=== PATIENT | male | born 1995 | race African-American/Black ===

== ENCOUNTER 2019-07-27 14:10 | Inpatient (IN) ==
[2019-07-27] MEDS ORDERED: XYLOCAINE-MPF 1% INJ ONE (15:09)
--- NOTE | 2019-07-27 15:14 | PROVIDER DOCUMENTATION ---
HPI-Rash/Wound/ReCheck - General Chief Complaint: Abscess Stated Complaint: MALE Time Seen by Provider: 07/27/19 14:19 Source: patient Allergies/Adverse Reactions: Allergies Allergy/AdvReac Type Severity Reaction Status Date / Time No Known Allergies Allergy Verified 07/27/19 15:07 Home Medications: Home Medication List Medication Instructions Recorded Confirmed Last Taken Type NK [No Home Medications] 07/27/19 07/27/19 Unknown History - History of Present Illness-Dermatology Nature of Presenting Problem: 23 YOM PRESENTS WITH C/O PERINEAL ABSCESS FOR WHICH HE WAS TREATED WITH FLAGYL AND LEVAQUIN 10 DAYS AGO. HE REPORTS THEY WERE UNABLE TO DO AN I&D AT THAT TIME. SINCE THAT TIME THE LESION HAS BEEN DRAINING AND THE PATIENT REPORTS HE HAD NO WAY TO "CLEAN IT OUT" SO HE PRESENTS TO THE ER. HE DENIES FEVER, CHILLS Location: reports: genitalia Quality: reports: painful Severity: reports: moderate Onset/Duration: reports: other (12 DAYS) Timing: reports: still present Context/Associated Symptoms: reports: abscess Identifiable cause?: No Modifying Factors: improves with: other (WAS TX WITH FLAGYL/LEVAQUIN X 10 DAYS) Similar Symptoms Previously?: No Recently seen or treated by another doctor?: Yes (ER IN [place] ) - Recheck Treated days ago.: 10 Previous Treatment: I & D of abscess Antibiotics given: prescription Review of Systems - Adult - REVIEW OF SYSTEMS - ADULT Constitutional: reports: no symptoms reported. denies: see HPI, chills, fever, fatique, night sweats, weight gain, weight loss, other Eyes: reports: no symptoms reported. denies: see HPI, discharge, dry eyes, decreased vision, blurred vision, double vision, eye pain, redness, other Ears, Nose, Mouth & Throat: reports: no symptoms reported. denies: see HPI, ear discharge, ear pain, hearing loss, tinnitus, epistaxis, sinus problem, nose pain, loose teeth, mouth/dental pain, mouth swelling, hoarseness, throat pain, throat swelling, other Cardiovascular: reports: no symptoms reported. denies: see HPI, chest pain, edema, heart murmur, irregular heart rate, orthopnea, palpitations, poor circulation, PND, syncope, other Respiratory: reports: no symptoms reported. denies: see HPI, chronic cough, cough, dyspnea on exertion, excessive sputum production, hemoptysis, pleurisy, shortness of breath, wheezing, other Gastrointestinal: reports: no symptoms reported. denies: see HPI, abdominal pain, hematemesis, constipation, diarrhea, difficulty swallowing, frequent heart burn, nausea, poor appetite, rectal bleeding, vomiting, other Genitourinary: reports: see HPI. denies: no symptoms reported, dysuria, discharge, frequency, flank pain, frequent UTI's, hematuria, hesitency, incontinence, urinary retention, urgency, other Musculoskeletal: reports: no symptoms reported. denies: see HPI, bone pain, back pain, frequent leg cramps, joint pain, joint swelling, muscle aches, muscle weakness, neck pain, other Integumentary: reports: see HPI, skin sores/ulcer. denies: no symptoms reported, hives, hair loss, itching, mole changes, nail changes, rash, skin thickening, other Neurological: reports: no symptoms reported. denies: see HPI, ataxia, dizziness/vertigo, headache/migraines, loss of balance, numbness, paresthesia, seizure, slurred speech, syncope, tremors, other Psychiatric: reports: no symptoms reported. denies: see HPI, anxiety, anti- depressant use, alcohol/drug dependence, depression, emotional problems, insomnia, panic attacks, suicidal thoughts, other Endocrine: reports: no symptoms reported. denies: see HPI, change in skin pigment, excessive sweating, goiter, cold intolerance, heat intolerance, increased hunger, increased thirst, polyuria, other Hematologic/Lymphatic: reports: no symptoms reported. denies: see HPI, blood clots, easy bruising, low blood count, lymphedema, prolonged bleeding, swollen lymph nodes, transfusions, other Allergic/Immunologic: reports: no symptoms reported. denies: see HPI, allergic reactions, allergic rhinitis, asthma, eczema, food allergy, frequent infections, hay fever, hives, positive PPD, urticaria, other Past History - Adult - PAST MEDICAL HISTORY-ADULT Review of Records: reports: Nursing Assessment Review, Social history reviewed & non-contributory. Physical Exam-General - PHYSICAL EXAM-ADULT Initial Vital Signs Reviewed: Yes - CONSTITUTIONAL General Appearance: appears well, alert, no apparent distress - EYES Eyes: PERRL/EOMI, pink conjunctivae - HEAD, EARS, NOSE, MOUTH & THROAT HENMT: normocephalic/atraumatic, moist mucous membranes, normal ENT inspection - NECK Neck: non-tender, full range of motion, supple - RESPIRATORY Respiratory: chest non-tender, lungs clear, normal breath sounds, no pleuratic chest pain, no respiratory distress, no accessory muscle use - CARDIOVASCULAR Cardiovascular: normal peripheral pulses, regular rate, rhythm, no edema, no gallop, no JVD, no murmur - GASTROINTESTINAL (ABDOMEN) Abdominal Exam: normal bowel sounds, non tender, soft - LYMPHATIC Lymphatic: no adenopathy - MUSCULOSKELETAL Back Exam: normal inspection, no CVA tenderness, no vertebral tenderness Extremity: normal range of motion, non-tender, normal gait, normal inspection - SKIN Integumentary: normal color, normal turgor, warm/dry, other (ABCESS TO PERINEAL AREA) - NEUROLOGIC Neurologic: grossly normal - PSYCHIATRIC Psych/Mental Status: normal mood/affect, oriented x 3 Progress - PLAN OF CARE/RESULTS Progress/Plan/Lab Results: Vital Signs - 8 hr 07/27/19 14:17 Temperature 98.0 F Pulse Rate 108 H Respiratory Rate 18 Blood Pressure 139/100 O2 Sat by Pulse Oximetry 98 Laboratory Results - last 24 hr 07/27/19 07/27/19 07/27/19 15:42 15:42 15:49 WBC 11.76 H RBC 5.77 Hgb 15.0 Hct 45.8 MCV 79.4 L MCH 26.0 L MCHC 32.8 L RDW Std Deviation 12.1 Plt Count 577 H MPV 9.7 Immature Gran % (Auto) 0.9 H Neut % (Auto) 66.2 Lymph % (Auto) 23.3 Baxter % (Auto) 8.2 Eos % (Auto) 1.1 Baso % (Auto) 0.3 Immature Gran # (Auto) 0.10 H Neut # (Auto) 7.79 H Lymph # (Auto) 2.74 Baxter # (Auto) 0.97 H Eos # (Auto) 0.13 Baso # (Auto) 0.03 PT 14.6 INR 1.08 POC Glucose 289 H Orders Category Date Time Status Cardiac Monitoring DIRECTED Care 07/27/19 15:31 Active Finger Stick Blood Sugar (ED) DIRECTED Care 07/27/19 15:29 Active I and D Set up DIRECTED Care 07/27/19 15:09 Active Saline Loc NOW Care 07/27/19 15:28 Active Wound Care DIRECTED Care 07/27/19 15:46 Active NPO Diet 07/27/19 15:46 Active ABG [RESP] Stat Lab 07/27/19 15:48 Uncollected ABSCESS CULTURE INC GRAM STAIN [RM] Stat Lab 07/27/19 15:30 Uncollected ACETONE SERUM [CHEM] Stat Lab 07/27/19 15:42 Received BLOOD CULTURE [BLDCUL] Stat Lab 07/27/19 15:31 Ordered BLOOD CULTURE [BLDCUL] Stat Lab 07/27/19 15:44 Ordered CBC WITH ELECTRONIC DIFF [HEME] Stat Lab 07/27/19 15:42 Completed CK PROFILE [SP CHEM] Stat Lab 07/27/19 15:42 Received COMPREHENSIVE METABOLIC PANEL [CHEM] Stat Lab 07/27/19 15:42 Received LACTATE, PLASMA [CHEM] Q3H Lab 07/27/19 18:45 Uncollected LACTATE, PLASMA [CHEM] Q3H Lab 07/27/19 21:45 Uncollected LACTATE, PLASMA [CHEM] Stat Lab 07/27/19 15:42 Received MAGNESIUM [CHEM] Stat Lab 07/27/19 15:42 Received PROTIME WITH INR [COAG] Stat Lab 07/27/19 15:42 Received PTT [COAG] Stat Lab 07/27/19 15:42 Received TROPONIN T Stat Lab 07/27/19 15:42 Received TYPE & SCREEN [BBK] Stat Lab 07/27/19 15:[address] W/POSS RFLX CULT [URINALYSIS] Stat Lab 07/27/19 15:31 Uncollected 0.9% Sodium Chloride Inj [Ns] 1,000 ml Med 07/27/19 15:28 Discontinued IV 999 mls/hr 0.9% Sodium Chloride Inj [Ns] 1,000 ml Med 07/27/19 15:34 Active IV 999 mls/hr Lidocaine 1% Pf [Xylocaine-Mpf 1%] Med 07/27/19 15:09 Discontinued 10 ml INJ NOW ONE Piperacillin/Tazobactam [Zosyn] 3.375 gm Med 07/27/19 15:29 Discontinued 0.9% Sodium Chloride Inj [Ns] 50 ml IV NOW Vancomycin 1 gm/Ns Med 07/27/19 15:29 Active 1 gm in 250 ml IV NOW 1536: NO I&D PERFORMED S&S CONSISTENT WITH FOURNIERS GANGRENE, DR MAGALLON HAS ALSO EVALUATED THE PATIENT. CALLED UROLOGY NOW Result Diagrams: 07/27/19 15:42 - CONSULTS/PCP/HOSPITALIST Notification #1 *Consult/PCP/Hospitalist*: Katelyn paged at [phone], repaged at [phone] Time Discussed: 16:05 Reason/Comments: ER TO ER, UROLOGY TO SEE IN ER Consult Disposition: Admit #2 Consult: DR SAWYER IN ER AT DG Time Discussed: 16:05 Consult Disposition: other (SENDING ER TO ER) Departure - Departure Date of Disposition Decision: 07/27/19 Time of Disposition Decision: 16:05 DIAGNOSIS: Danny gangrene, Diabetes mellitus with hyperglycemia Disposition: HOME 01 Certified Medical Emergency: Emergent Condition: Fair Referrals and Follow-Ups: None,PCP [Primary Care Provider] - - Critical Care Note This patient required my direct & personal management of CC.: Yes Total Time (mins): 30 Critical Care Statement: This patient required my direct personal management to treat or rule out processes, the absence of which, could potentiallly result in sudden, clinically significant life or limb threatening deterioration. Attestation - Physician/ KELSEY Attestation Advanced Practice Provider:: Moon Merrill The physician spent face to face time with patient:: Yes Advanced Practice Provider documentation review:: Supervising physician onsite and consulted in the evaluation and care of this patient. The physician did have a face to face encounter with the patient.
[2019-07-27] MEDS ORDERED: NS 1,000 ML IV ONE ×2 (15:28→15:34)
[2019-07-27] MEDS ORDERED: VANCOMYCIN 1 GM/NS 1 GM/250 ML IVPB IV ONE (15:29)
[2019-07-27] MEDS ORDERED: ZOSYN 3.375 GM in NS 50 ML IV ONE (15:29)
[2019-07-27 16:00] LABS: BASO# 0.03 X1000 (0.0-0.2); BASO% 0.3 % (0.0-0.8); EOS# 0.13 X1000 (0.0-0.7); EOS% 1.1 % (0.0-10.0); HEMATOCRIT 45.8 % (42.0-52.0); IMM GRAN% 0.9 % (0.0-0.5); LYMPH# 2.74 X1000 (1.2-3.4); LYMPH% 23.3 % (20.5-51.1); MCHC 32.8 g/dL (33-37); MCV 79.4 FL (81-99); MONO# 0.97 X1000 (0.11-0.59); MONO% 8.2 % (1.7-9.3); MPV 9.7 FL (7.4-10.4); NEUT# 7.79 X1000 (1.4-6.5); NEUT% 66.2 % (42.2-75.2); PLT 577 X1000 (130-400); RBC 5.77 XMIL (4.7-6.1); RDW 12.1 % (11.5-14.5); WBC 11.76 X1000 (4.8-10.8)
[2019-07-27 16:08] LABS: INR 1.08; PROTIME 14.6 Seconds (11.0-16.0)
[2019-07-27 16:09] LABS: PTT 35.8 Seconds (22.3-41.8)
[2019-07-27 16:19] LABS: AGAP 16; ALBUMIN 4.3 g/dL (3.5-5.0); ALKALINE PHOSPHATASE 122 U/L (32-122); BUN 7 mg/dL (8-22); CALCIUM 9.9 mg/dL (8.8-10.2); CHLORIDE 98 mmol/L (98-107); COSMO 283; CREATININE 0.6 mg/dL (0.7-1.2); ESTIMATED GFR > 60; GLUCOSE 274 mg/dL (70-104); POTASSIUM 3.9 mmol/L (3.5-5.1); SODIUM 138 mmol/L (136-145); TCO2 25 mmol/L (25-35); TOTAL PROTEIN 8.7 g/dL (6.3-8.3)
[2019-07-27 16:20] LABS: MAGNESIUM 1.9 mg/dL (1.5-2.7)
[2019-07-27 16:31] LABS: GOT 63 U/L (10-34); GPT 101 U/L (10-44)
[2019-07-27 18:06] LABS: ALLEN TEST YES; BE -1.2 mmoll (-3.0-3.0); BLOOD TYPE ARTERIAL; HCO3-(ACT) 23.8 mmoll (20.0-26.0); METHB 0.8 % (0.0-1.5); PCO2(98.6) 39 mmHg (35-45); PO2(98.6) 64 mmHg (60-100); SAMPLE BLOOD; SAO2 94.5 % (95.0-100.0); THB 13.9 g/dL (11.5-17.4); pH(98.6) 7.39 (7.35-7.45)
[2019-07-27 18:07] LABS: MODALITY ROOM AIR
[2019-07-27] MEDS ORDERED: XYLOCAINE-MPF 2% ONE (18:32)
[2019-07-27] MEDS ORDERED: VERSED ONE (18:32)
[2019-07-27] MEDS ORDERED: DIPRIVAN 1% ONE (18:32)
[2019-07-27 18:42] LABS: URINE SOURCE CATH
[2019-07-27 18:47] LABS: UR EPITHELIAL CELLS <10 /HPF (<10); URINE BACTERIA NEGATIVE /HPF; URINE RBC 20-40 /HPF (<10); URINE WBC <10 /HPF (<10)
[2019-07-27 18:49] LABS: BILIRUBIN URINE NEGATIVE (NEGATIVE); BLOOD URINE MODERATE (NEGATIVE); COLOR YELLOW; GLUCOSE URINE >1000 mg/dL (NEGATIVE); KETONE URINE 60 mg/dL (NEGATIVE); LEUKOCYTES URINE NEGATIVE (NEGATIVE); NITRITE URINE NEGATIVE (NEGATIVE); PH URINE 6.5; PROTEIN URINE 30 mg/dL (NEGATIVE); SP GRAVITY URINE 1.031; TURBIDITY URINE CLEAR (CLEAR); UROBILINOGEN URINE NORMAL (NORMAL)
[2019-07-27] MEDS ORDERED: ZOFRAN ONE (19:05)
[2019-07-27] MEDS ORDERED: TORADOL ONE (19:05)
[2019-07-27] MEDS ORDERED: ROBINUL ONE (19:05)
[2019-07-27] MEDS ORDERED: DILAUDID ONE (19:17)
[2019-07-27 19:41] LABS: URINE SOURCE CATH
[2019-07-27 19:46] LABS: UR EPITHELIAL CELLS <10 /HPF (<10); URINE BACTERIA NEGATIVE /HPF; URINE RBC <10 /HPF (<10); URINE WBC <10 /HPF (<10)
[2019-07-27 19:47] LABS: BILIRUBIN URINE NEGATIVE (NEGATIVE); BLOOD URINE SMALL (NEGATIVE); COLOR YELLOW; GLUCOSE URINE 300 mg/dL (NEGATIVE); KETONE URINE 60 mg/dL (NEGATIVE); LEUKOCYTES URINE NEGATIVE (NEGATIVE); NITRITE URINE NEGATIVE (NEGATIVE); PROTEIN URINE TRACE mg/dL (NEGATIVE); SP GRAVITY URINE 1.012; TURBIDITY URINE CLEAR (CLEAR); UROBILINOGEN URINE NORMAL (NORMAL)
[2019-07-27] MEDS ORDERED: MORPHINE IV PRN (20:46)
[2019-07-27] MEDS ORDERED: VANCOMYCIN IV PER PHARMACY MISC SCH (21:00)
[2019-07-27] MEDS: ZOFRAN IV PRN (21:30)
--- NOTE | 2019-07-27 21:56 | HISTORY AND PHYSICAL ---
CHIEF COMPLAINT: Abscess in his pablito area. HPI: This is a 23-year-old male who went to [facility] last Tuesday, which was around 8 days ago. He took a full course of Levaquin and Flagyl from what I understand. The abscess in his pablito area did end up opening up and starting to drain, however, he came into the emergency room. Originally they were unable to do an I and D. Patient had no way to clean out the abscess, this is what he presented to the emergency room saying. He denied any type of fever and chills. Urology was consulted and he went to the emergency room related to signs and symptoms consistent with Danny gangrene. After the I and D I assessed the patient on the medical floor. He had some nausea and vomiting but is otherwise doing well. He will be admitted for further evaluation and treatment. PAST MEDICAL HISTORY: 1. Diabetes mellitus type 2 which is apparently controlled by diet. 2. Questionable hypertension. 3. History of blood clot in right leg. PREVIOUS SURGICAL HISTORY: Surgery to remove blood clot in right leg. SOCIAL HISTORY: He lives with a roommate. No tobacco, alcohol, or illicit drugs. FAMILY HISTORY: Mom had a rectal cancer. ALLERGIES: No known drug allergies. HOME MEDICATIONS: No home medications. REVIEW OF SYSTEMS: A 14 point review of systems is conducted with the patient. He complained of pain in his scrotal area at the area of the abscess, nausea and vomiting. Denied other complaints. A 14 point review was conducted. PHYSICAL EXAMINATION: VITAL SIGNS: Temperature 98, pulse 110, respirations 14, blood pressure 167/110, oxygen saturation 99% on room air. GENERAL: Pleasant 23-year-old male lying in the medical floor bed. I believe he is still somewhat sedated from surgery, however, he is alert and oriented x3, able to answer all questions appropriately. HEENT: Head is atraumatic, normocephalic. Pupils equal, round, reactive to light. Extraocular eye movements intact. Sclerae anicteric. Conjunctiva pink. Oral mucosa is mildly dry. NECK: Supple. No JVD. No thyromegaly. Trachea is midline. No cervical lymphadenopathy. CARDIAC: S1, S2 appreciated. No murmurs, gallops, rubs. LUNGS: Clear to auscultation bilaterally. No rhonchi, wheezes, rales. Symmetric rise and fall respirations. ABDOMEN: Soft, nondistended, nontender. Bowel sounds present all 4 quadrants. Normoactive. No pulsatile mass or organomegaly. EXTREMITIES: No clubbing, cyanosis or edema. 2+ pedal pulses bilaterally. GENITOURINARY: Patient voids. Gauze dressing has very mild serosanguineous bleeding. Is otherwise clean, dry and intact. NEUROLOGICAL: Mildly sedated after surgery, but alert and oriented x3. No focal motor deficits. Otherwise nonfocal examination. LABORATORY DATA: WBC 11.76, hemoglobin 15, hematocrit 45.8, platelet count 577. Coags within normal limits. ABG within normal limits. Sodium 138, potassium 3.9, chloride 98, carbon dioxide 25, BUN 7, creatinine 0.6, glucose 274. ASSESSMENT AND PLAN: 1. Danny gangrene. Patient had I and D. Will continue vancomycin and Zosyn. Will wait for blood cultures and abscess culture and change antibiotics if necessary. 2. Pain related to Danny gangrene. Will give morphine, Zofran as needed for nausea. 3. Diabetes mellitus type 2 with hyperglycemia. Check hemoglobin A1c, fingerstick blood sugars at before meals and bedtime with sliding scale coverage. Patient may need to go home on oral antihyperglycemics. 4. Hypertension with goal to be determined. Patient states that his blood pressure is normally within normal range, however, it is elevated at this time. Will give p.r.n. medications and continue to monitor. Patient may need to be discharged with oral antihypertensives. 5. Further recommendations based on patient's clinical course. Dictated by MARCEL Blanco for Bob Fulton MD I have performed a face to face diagnostic evaluation. Labs/xrays- reviewed. Exam- Chest- clear, CV- regular,- drsg dry and intact. A/P-Danny gangrene- s/p I &D- Admit, IV ABX, drsg changes. Dr. Fulton cc: MARCEL Blanco MD [facility]
--- NOTE | 2019-07-27 21:56 | OPERATIVE NOTE ---
PROCEDURE DATE: 07/27/2019 SURGEON: Poncho Zepeda MD. 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 PROCEDURE: Extensive debridement of Danny gangrene involving the perineal skin, subcutaneous tissue, fascia and muscles. Total skin debridement area was approximately 60 mL. INDICATIONS: A 23-year-old male with poorly controlled diabetes mellitus who reports perineal lump that eventually drained. He had presented to outside hospital 3 times and was sent home reportedly without urologic consult or procedure. He presented to [facility] where during evaluation there was a concern for Danny gangrene given necrotic tissue. He was transferred to the emergency room at [facility] and seen by me. He has significant gangrenous area of his perineum, and I counseled him on intervention. He desires to proceed. FINDINGS: Approximately 10 x 6 cm area of his perineum and inferior scrotum was debrided. No evidence of perirectal involvement. Garcia catheter was placed without difficulties through his hypospadiac meatus. Adequate hemostasis at conclusion of the case. PROCEDURE IN DETAIL: After obtaining informed consent, patient was brought to the operating room. Perioperative antibiotics, and general endotracheal anesthesia were administered. He was placed in lithotomy position with his lower extremities padded. He was prepped and draped in sterile fashion. A 16-Armenian Garcia catheter was introduced. He had visible gangrenous material overlying his midline perineum. Heavy scissors were used to debride all the necrotic tissue which was sent off for pathologic confirmation. Deeper, I used Metzenbaum scissors and Bovie electrocautery to debride necrotic tissues. It was clear that the gangrene had involved skin, subcutaneous tissues, fascia and perineal musculature. I ended up performing quite an extensive debridement. My surgeon's finger was then advanced, and a space was developed along his inguinal canal. There was no evidence of purulence coming from there. The space was then developed with surgeon's finger in the posterior perineum around his rectum, and there was no evidence of abscess involvement there. Surgeon's digital rectal examination revealed smooth symmetric prostate approximately 25 g without evidence of fluctuance, tenderness or extension of the gangrene. We then copiously irrigated his wound with Vashe solution. Hemostasis was obtained with Bovie electrocautery. I then used gauze to pack his wound along his inguinal areas as well as the perineum. ABD pad followed by application of a meshed underwear was applied. He was extubated and taken to PACU for further recovery. ESTIMATED BLOOD LOSS: 10 mL. COMPLICATIONS: None. SPECIMENS: Necrotic tissue. DRAINS: 16-Armenian Garcia catheter. DISPOSITION: To PACU and subsequently floor for observation and IV antibiotics per hospitalist service. cc: Poncho Zepeda MD
[2019-07-27] MEDS ORDERED: VANCOMYCIN 1,250 MG in NS 250 ML IV ONE (22:00)
--- NOTE | 2019-07-27 22:08 | CONSULTATION ---
DATE OF CONSULTATION: 07/27/2019 REQUESTING PHYSICIAN: Dr. Chau in the emergency room. REASON FOR CONSULTATION: For Danny gangrene. HISTORY OF PRESENT ILLNESS: A 23-year-old male with history of poorly controlled diabetes mellitus. He reports having been in a diabetic coma in the past. He does not have a family doctor. He reports 1 week ago he developed a perineal swelling that looked like a pimple. It eventually increased in size. He reports presenting to [facility] and was told that he would benefit from hot compresses and antibiotics. He then presented the next day for followup in the ER again and was told there was not much more they could do. He reported being seen a third time and being told to complete antibiotics. He reports that eventually the perineal swelling had spontaneously drained purulent material. He did not get it cultured at the time. He then presented to [facility] on 07/27/2019 with worsening pain, fullness and drainage as well as foul smell. He denies fevers. He denies similar episodes in the past. He denies significant urinary symptoms, although reports occasional hesitancy. PAST MEDICAL HISTORY: Diabetes mellitus. PAST SURGICAL HISTORY: Percutaneous clot evacuation in his legs, although the patient does not recall the specific name of the procedure. ALLERGIES: No known drug allergies. MEDICATIONS: None. SOCIAL HISTORY: He denies tobacco or alcohol use. He reports marijuana use. FAMILY HISTORY: Denies malignancies. REVIEW OF SYSTEMS: Reviewed, and 12 systems were negative except as in HPI. PHYSICAL EXAMINATION: Vital Signs: T 98.2, P 93, BP 111/86. General: No acute distress. HEENT: Normocephalic, atraumatic. Cardiovascular: Regular rhythm. Pulmonary: Bilateral breath sounds. Abdomen: Scaphoid, nontender to palpation. Back: No CVA tenderness. : He has distal shaft hypospadias with a patent meatus. The penile shaft is without lesions. His testes are descended bilaterally. No masses noted. He has a necrotic and gangrenous appearing perineal area, approximately 5 x 10 cm, with purulent drainage on the sheets and noted in the wound. There is no fluctuance noted. He declined a digital rectal examination at the time of visit. There is no crepitus in the inguinal areas or the scrotum. Back: No CVA tenderness. Lymphatic: No groin lymphadenopathy. Dermatologic: Multiple tattoos. No skin lesions. Neurologic: Alert and oriented x3. Psychiatric: Appropriate mood and affect. PERTINENT LABORATORY DATA: White cell count 12,000, hematocrit 46. Creatinine is 0.6. His glucose is 289. PERTINENT IMAGES: None. ASSESSMENT: A 23-year-old male who reports a perineal abscess that he attempted to be treated for on 3 occasions at [facility] and was sent home with antibiotics in the form of Levaquin and Flagyl. He had worsened and presented to the [place] [facility]. Please note that I was paged at 1600 on 07/27/[address] Chau's call immediately. I advised for the patient to be transferred to [facility] so that we could provide possible surgical intervention. I examined the patient once he arrived and I was notified by the charge nurse. I have discussed with the patient that he has Danny gangrene. We discussed the significance of it worsening and increased mortality risk. We discussed that he would benefit from incision and drainage of his Danny gangrene, which would involve most of his perineum. I discussed with him he may have perirectal involvement and we would note that intraoperatively. We discussed that he may need another trip to the operating room. We discussed that he may have to have a graft or wound VAC or some sort of a system with wound closure down the road. We discussed risks of the procedure, including but not limited to, bleeding, infection, injury to adjacent structures, inability to remove all of the tissue, and need for additional interventions. He was understanding and wants to proceed. His fiancee was at bedside. PLAN: 1. N.p.o. now. 2. Broad-spectrum antibiotics. 3. I have discussed this patient with Raquel Martinez with the hospitalist service, and they agreed to admit the patient to the operating room now emergently for incision and debridement of Danny gangrene of his perineum. cc: Poncho Zepeda MD
[2019-07-27] MEDS: NS 1,000 ML IV SCH (22:23)
[2019-07-27] MEDS: PERIDEX MT SCH (22:23)
[2019-07-27] MEDS: HUMALOG SUBQ SCH (22:24)
[2019-07-27] MEDS: ZOSYN 3.375 GM in NS 50 ML IV SCH (22:24)
[2019-07-27] MEDS: APRESOLINE IV SCH (22:24)
[2019-07-28 00:55] LABS: HEMOGLOBIN A1C 13.6 % (4.8-6.0)
[2019-07-28] MEDS: APRESOLINE IV SCH ×4 (04:22→22:22)
[2019-07-28] MEDS: ZOSYN 3.375 GM in NS 50 ML IV SCH ×4 (04:22→22:21)
[2019-07-28] MEDS: ZOFRAN IV PRN ×2 (04:37→18:35)
[2019-07-28] MEDS: HUMALOG SUBQ SCH ×4 (06:57→22:39)
[2019-07-28 07:15] LABS: BASO# 0.03 X1000 (0.0-0.2); BASO% 0.2 % (0.0-0.8); EOS# 0.05 X1000 (0.0-0.7); EOS% 0.4 % (0.0-10.0); HEMATOCRIT 41.5 % (42.0-52.0); HEMOGLOBIN 13.5 g/dL (14.0-18.0); IMM GRAN# 0.05 X1000 (0.0-0.04); IMM GRAN% 0.4 % (0.0-0.5); LYMPH# 1.64 X1000 (1.2-3.4); LYMPH% 13.2 % (20.5-51.1); MCH 26.3 PG (27-31); MCHC 32.5 g/dL (33-37); MCV 80.7 FL (81-99); MONO# 0.88 X1000 (0.11-0.59); MONO% 7.1 % (1.7-9.3); MPV 9.8 FL (7.4-10.4); NEUT# 9.81 X1000 (1.4-6.5); NEUT% 78.7 % (42.2-75.2); PLT 535 X1000 (130-400); RBC 5.14 XMIL (4.7-6.1); RDW 12.2 % (11.5-14.5); WBC 12.46 X1000 (4.8-10.8)
[2019-07-28] MEDS ORDERED: FLU VACCINE IM ONE (07:39)
[2019-07-28 07:49] LABS: AGAP 19; BUN 5 mg/dL (8-22); CHLORIDE 96 mmol/L (98-107); COSMO 277; CREATININE 0.7 mg/dL (0.7-1.2); ESTIMATED GFR > 60; GLUCOSE 273 mg/dL (70-104); POTASSIUM 3.7 mmol/L (3.5-5.1); SODIUM 135 mmol/L (136-145); TCO2 20 mmol/L (25-35)
[2019-07-28] MEDS: VANCOMYCIN 1,750 MG in NS 250 ML IV SCH ×2 (09:06→20:10)
[2019-07-28 11:41] LABS: HEMOGLOBIN A1C 13.2 % (4.8-6.0)
[2019-07-28] MEDS: PERIDEX MT SCH ×2 (11:42→20:09)
--- NOTE | 2019-07-28 12:46 | PROGRESS NOTE ---
DATE: 07/28/2019 SUBJECTIVE: Patient notes his pain is tremendously better. Denies any current issues. Denies fevers or chills. Patient notes that he has a diet-controlled diabetes diabetic. States his blood sugars are typically under good control at home. When asked, he states that that is between 200 to 250. OBJECTIVE: Temperature 98, pulse 101, respiratory 18, and BP 145/76 to 159/99.General: Patient is awake and alert. He is in no current respiratory distress sitting in the bed talking with his girlfriend. HEENT: Normocephalic. Neck: Supple. Cardiovascular: Regular rate. No murmurs. Chest: Clear. Abdomen: Soft. Extremities: Moves all extremities. Neurologic: No changes. ASSESSMENT: 1. Diabetes with poor home control. Discussed with patient that despite what he may have been told or misunderstood in the past 200 to 250 is not good control. In fact, also stated to him that the only people who gets to his current illness are poorly controlled diabetics. 2. Danny's gangrene. 3. Hypertension. PLAN: We will check a C-peptide to make sure he does not have type 1 diabetes. If he does not, he certainly can be started on Glucophage and possibly glipizide at home. Discussed the perils of poor control, diabetes i.e. his current infection, heart attack, strokes, loss of his kidney, loss of his feet, pain in his hands and feet, blindness, and . Discussed the importance of controlling blood sugar and blood pressure. cc: Kodi Florez MD
--- NOTE | 2019-07-28 15:36 | PROGRESS NOTE ---
DATE: 07/28/2019 SUBJECTIVE: Mr. Kyle reports feeling better with respect to his perineal pain. He denies fevers or chills. OBJECTIVE: Vital Signs: T 98.1 degrees, P 102, BP 156/94. General: No acute distress. Abdomen: Nontender, nondistended. : Garcia catheter in place draining straw-colored urine. His perineal wound edges appeared to be healthy with pink granulation tissue noted. No evidence of necrosis or crepitans noted. There was a small area of purulent-appearing material at 5 o'clock, approximately 1 cm. PERTINENT LABORATORY DATA: White cell count is 12,000, creatinine 0.7. His sugar is 273. ASSESSMENT: A 23-year-old male with Danny gangrene of his perineum and poorly controlled diabetes mellitus, who underwent incision and debridement. His wound today appears to be clean with decent granulation tissue. I have discussed with the patient that he will likely require a second-look in operating room, although he has so far progressed nicely. We have discussed the importance of diabetes control as that is definitely what lead to his Danny. I have discussed that it will take quite some time for his perineal wound to heal. We discussed wet-to-dry dressing changes twice a day with gauze. PLAN: 1. Continue dressing changes b.i.d. 2. Continue broad antibiotics. His wound cultures are pending. 3. Will follow and reassess tomorrow to determine whether he needs to go for a second look. cc: Poncho Zepeda MD
[2019-07-28] MEDS: NS 1,000 ML IV SCH (16:23)
[2019-07-29] MEDS: NS 1,000 ML IV SCH ×2 (02:19→16:31)
[2019-07-29] MEDS: ZOSYN 3.375 GM in NS 50 ML IV SCH ×4 (03:26→23:45)
[2019-07-29] MEDS: APRESOLINE IV SCH ×5 (03:26→22:04)
[2019-07-29 06:41] LABS: HEMATOCRIT 41.9 % (42.0-52.0); HEMOGLOBIN 13.8 g/dL (14.0-18.0); MCH 26.9 PG (27-31); MCHC 32.9 g/dL (33-37); MCV 81.7 FL (81-99); MPV 9.5 FL (7.4-10.4); RBC 5.13 XMIL (4.7-6.1); RDW 12.7 % (11.5-14.5); WBC 8.83 X1000 (4.8-10.8)
[2019-07-29] MEDS: HUMALOG SUBQ SCH ×4 (06:57→22:41)
[2019-07-29 07:03] LABS: AGAP 19; ALB/GLOB RATIO 0.7; ALBUMIN 3.2 g/dL (3.5-5.0); ALKALINE PHOSPHATASE 101 U/L (32-122); BUN 4 mg/dL (8-22); CALCIUM 8.7 mg/dL (8.8-10.2); CHLORIDE 98 mmol/L (98-107); COSMO 280; CREATININE 0.7 mg/dL (0.7-1.2); ESTIMATED GFR > 60; GLUCOSE 235 mg/dL (70-104); GOT 125 U/L (10-34); GPT 228 U/L (10-44); MAGNESIUM 2.1 mg/dL (1.5-2.7); POTASSIUM 3.3 mmol/L (3.5-5.1); SODIUM 138 mmol/L (136-145); TCO2 21 mmol/L (25-35); TOTAL BILIRUBIN 0.31 mg/dL (0.20-1.00); TOTAL PROTEIN 7.6 g/dL (6.3-8.3)
[2019-07-29] MEDS: PERIDEX MT SCH ×2 (09:12→20:05)
[2019-07-29] MEDS: VANCOMYCIN 2,000 MG in NS 500 ML IV SCH ×2 (09:12→20:05)
--- NOTE | 2019-07-29 09:30 | PROGRESS NOTE ---
DATE: 07/29/2019 SUBJECTIVE: Mr. Kyle is feeling a lot better. He underwent surgery on the per Dr. Zepeda. Danny's gangrene involving the scrotum, perineum, extension of gangrene in the subcutaneous tissue, fascia in the perineal muscles, poorly-controlled diabetes. He feels much better. Swelling has gone down. Bandage underneath the posterior scrotum and little drainage. OBJECTIVE: Temperature 97.8 degrees, pulse 97, respirations 18, blood pressure 169/99. Pupils are equal and round. Lungs are clear in all lung hyman. Cardiovascular Examination: Regular rhythm and rate without murmur or S3. Abdomen is soft. Skin is warm and dry. ASSESSMENT AND PLAN: 1. 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 Underwent incision and debridement, and wound seems to be clean. Decent granulation per Dr. Zepeda. Continue to change dressings. Continue broad-spectrum antibiotics. 2. It appears he has diabetes and I suspect it was poorly-controlled. Sugar is still running above 200. I think that we are planning on checking a C-peptide. Continue Zosyn and vancomycin. Currently, he is on sliding scale. I suspect he will need to start on some metformin and possibly a hypoglycemic. cc: Jimenez Giraldo MD
[2019-07-29] MEDS: KLOR-CON PO SCH (10:55)
--- NOTE | 2019-07-29 11:59 | PROGRESS NOTE ---
DATE: 07/29/2019 SUBJECTIVE: Mr. Kyle reports a decent night overnight. He denies fevers. He reports perineal discomfort, but no severe pain. OBJECTIVE: Vital Signs: Temperature 97.8 degrees, pulse 99, BP 161/99. General: No acute distress. Abdomen: Tender, distended. : Wet-to-dry gauze noted in the perineal area. There is good granulation tissue. The edges of the wound look clean. Small area on the inferior aspect that yesterday showed yellowish discharge is stable. There is no evidence of further gangrene at this time. PERTINENT LABORATORY DATA: White cell count is 9000. Creatinine is 0.7. MICROBIOLOGY: His abscess culture is growing gram-positive cocci, and his blood culture revealed coagulase-negative staph from 07/27/2019. Full. ASSESSMENT: A 23-year-old male with Danny's gangrene, who underwent resection on 07/27/2019. His wound appears to be clean with good granulation tissue. I have discussed with the patient that he may not need a second-look given how well the wound looks. We discussed that he would definitely benefit from a Wound Care consult. Obviously, they are not available over the weekend, and I have discussed with the patient that we would ask for the Wound Care nurse to see him and evaluate him tomorrow. From the urologic standpoint, once we have a plan for his wound care, and the wound continues to look stable, he could be discharged. PLAN: 1. Continue dressing changes for now. 2. Wound Care consult on 07/30/2019. 3. Will follow. cc: Poncho Zepeda MD
[2019-07-29] MEDS: TYLENOL PO PRN ×2 (16:35→22:28)
[2019-07-29] MEDS: ZOFRAN IV PRN (20:05)
[2019-07-30] MEDS: ZOSYN 3.375 GM in NS 50 ML IV SCH ×2 (04:25→16:15)
[2019-07-30] MEDS: APRESOLINE IV SCH ×3 (04:25→16:19)
[2019-07-30] MEDS: ZOFRAN IV PRN ×2 (05:00→09:32)
[2019-07-30] MEDS: TYLENOL PO PRN (06:09)
[2019-07-30] MEDS: NS 1,000 ML IV SCH ×2 (06:10→16:17)
[2019-07-30 07:04] LABS: BASO# 0.03 X1000 (0.0-0.2); BASO% 0.4 % (0.0-0.8); EOS# 0.12 X1000 (0.0-0.7); EOS% 1.5 % (0.0-10.0); HEMATOCRIT 41.3 % (42.0-52.0); HEMOGLOBIN 13.6 g/dL (14.0-18.0); IMM GRAN# 0.05 X1000 (0.0-0.04); IMM GRAN% 0.6 % (0.0-0.5); LYMPH# 1.74 X1000 (1.2-3.4); LYMPH% 22.3 % (20.5-51.1); MCH 26.6 PG (27-31); MCHC 32.9 g/dL (33-37); MCV 80.7 FL (81-99); MONO# 0.92 X1000 (0.11-0.59); MONO% 11.8 % (1.7-9.3); MPV 9.5 FL (7.4-10.4); NEUT# 4.93 X1000 (1.4-6.5); NEUT% 63.4 % (42.2-75.2); PLT 499 X1000 (130-400); RBC 5.12 XMIL (4.7-6.1); RDW 12.2 % (11.5-14.5); WBC 7.79 X1000 (4.8-10.8)
[2019-07-30 07:23] LABS: AGAP 16; ALB/GLOB RATIO 0.8; ALBUMIN 3.3 g/dL (3.5-5.0); ALKALINE PHOSPHATASE 89 U/L (32-122); BUN 3 mg/dL (8-22); CALCIUM 8.1 mg/dL (8.8-10.2); CHLORIDE 102 mmol/L (98-107); COSMO 286; CREATININE 0.7 mg/dL (0.7-1.2); ESTIMATED GFR > 60; GLUCOSE 288 mg/dL (70-104); GOT 36 U/L (10-34); GPT 143 U/L (10-44); POTASSIUM 3.2 mmol/L (3.5-5.1); SODIUM 140 mmol/L (136-145); TCO2 22 mmol/L (25-35); TOTAL BILIRUBIN 0.36 mg/dL (0.20-1.00); TOTAL PROTEIN 7.3 g/dL (6.3-8.3)
[2019-07-30] MEDS: HUMALOG SUBQ SCH ×3 (07:53→16:18)
[2019-07-30] MEDS: KLOR-CON PO SCH (08:49)
[2019-07-30] MEDS: PERIDEX MT SCH (08:49)
[2019-07-30] MEDS: VANCOMYCIN 2,000 MG in NS 500 ML IV SCH (09:33)
--- NOTE | 2019-07-30 10:23 | PROGRESS NOTE ---
DATE: 07/30/2019 SUBJECTIVE: Mr. ventura he is feeling better. He says his stools are a little bit loose. He is sleeping well, not complaining of any pain. OBJECTIVE: Temperature 98 degrees pulse 100 respirations 14, blood pressure 149/102.HEENT: Pupils are equal round. Lungs: Clear in all lung hyman. Cardiovascular: Regular rhythm and rate without murmur or S3. Abdomen: Soft. Skin: Warm and dry. DATA: Urine output was 3400 mL. ASSESSMENT AND PLAN: 1. Danny gangrene, underwent resection 07/27/2019. Wound appears clean, doing well. I think the plan is to put a wound VAC on and possibly could go home. Continue present antibiotics. 2. Culture data. He had an abscess strep agalactia and it is resistant to clindamycin, sensitive to ampicillin, vancomycin. He is not allergic to anything. We will discuss with Dr. Zepeda. He did have 1 of 2 blood cultures for coagulase-negative Staphylococcus. I am not sure if that was contaminant or not. I am thinking about putting him on Augmentin 875 mg twice a day for another 7 days. Possibly go home today. cc: Jimenez Giraldo MD
[2019-07-30 15:57] VITALS: BP 149/102
--- NOTE | 2019-07-30 16:27 | DISCHARGE SUMMARY ---
ADMISSION DATE: 07/27/2019 DISCHARGE DATE: 07/30/2019 HISTORY: This is a 23-year-old male who has no primary care physician. He had an abscess in the perineal area underneath his scrotum. He went to [facility] last Tuesday, around 8 days ago, and had a full course of Levaquin and Flagyl. At that time, there was nothing to open or drain. However, it seemed to get worse and more pain and so he came in to our emergency room. Urology was consulted and it appeared he had Danny gangrene. PAST MEDICAL HISTORY: 1. Diabetes mellitus type 2 which has apparently been controlled on diet. 2. Hypertension. 3. History of blood clot in the right leg in the past. I think he had surgery to remove a blood clot in his right leg in the past. ADMISSION DIAGNOSIS: Danny gangrene. HOSPITAL COURSE: The patient had an I D and started on vancomycin and Zosyn. Dr. Poncho Zepeda was consulted, Urology. He had an abscess that was attempted to be treated on 3 occasions at [facility], sent home with antibiotics in the form of Levaquin and Flagyl. It worsened and presented to [place] [facility]. He was admitted to [facility], transferred over here. The patient had Danny gangrene. So, took him to surgery and underwent extensive debridement of Danny gangrene involving the perineal skin, subcutaneous tissue, fascia, and muscles. Total skin debridement was approximately 60 mL. The patient postop did well. Continued on antibiotics. He felt he wanted to go home on 07/30/2019. Encouraged to follow up with Dr. Zepeda in a week or 2. His cultures, he had 1 of 2 blood cultures with coagulase-negative Staph and then the abscess culture had Streptococcus agalactiae group B, which he has no known drug allergies. I am going to put him on Augmentin 875 mg twice a day for another 10 days. He has been instructed on how to change the wound dressing and we will get him ready to go home. cc: Jimenez Giraldo MD
== END 2019-07-30 17:33 | disposition home or self-care (01) | DRG 982 ==
LOC: P.ED 14:10 → ED 14:10 → SUATTDRO 20:23 → 4N 20:23
PROVIDERS: ATTEND Emergency Medicine

== ENCOUNTER 2020-01-30 18:38 | Inpatient (IN) ==
[2020-01-30] MEDS ORDERED: NS 1,000 ML IV ONE ×2 (18:56→19:05)
[2020-01-30] MEDS ORDERED: ZOFRAN IV ONE (19:16)
[2020-01-30] MEDS ORDERED: SODIUM CHLORIDE 0.9% INJ ONE (19:16)
[2020-01-30] MEDS ORDERED: PEPCID IV ONE (19:16)
--- NOTE | 2020-01-30 19:20 | PROVIDER DOCUMENTATION ---
HPI-Abdominal Pain/GI Problem - General Chief Complaint: Nausea/Vomiting Stated Complaint: N/V Time Seen by Provider: 01/30/20 18:40 Allergies/Adverse Reactions: Patient Allergies Allergy/AdvReac Type Severity Reaction Status Date / Time No Known Allergies Allergy Verified 07/27/19 15:07 - History of Present Illness-ABD Nature of Presenting Problems: 24 YOM with PMH of DM presents with 2 days of N/V, hiccups and epigastric abdominal pain. Denies fever, chills, sick contacts, elevated BG, CP, SOB, Diarrhea Abdominal Pain Onset Location: reports: epigastric Pain Radiation: reports: no radiation Quality of Pain: reports: aching, cramping Severity in ED: reports: moderate Onset/Duration: reports: 2 days ago Timing: reports: still present Activities at Onset: reports: none Exposure to sick contacts?: No Associated Symptoms: reports: nausea, vomiting. denies: chest pain, cough, diarrhea, shortness of breath Last BM: unsure Dark Stools Present?: reports: none noticed Rectal Bleeding: reports: none Rectal Pain: reports: none Emesis Description: reports: none Bruising or Bleeding Gums?: No Similar Symptoms Previously?: No Recently seen or treated by another doctor?: No Review of Systems - Adult - REVIEW OF SYSTEMS - ADULT Constitutional: reports: no symptoms reported. denies: chills, fever Eyes: reports: no symptoms reported. denies: see HPI, discharge, dry eyes, decreased vision, blurred vision, double vision, eye pain, redness, other Ears, Nose, Mouth & Throat: reports: no symptoms reported. denies: see HPI, ear discharge, ear pain, hearing loss, tinnitus, epistaxis, sinus problem, nose pain, loose teeth, mouth/dental pain, mouth swelling, hoarseness, throat pain, throat swelling, other Cardiovascular: reports: no symptoms reported. denies: see HPI, chest pain, edema, heart murmur, irregular heart rate, orthopnea, palpitations, poor circulation, PND, syncope, other Respiratory: reports: no symptoms reported. denies: see HPI, chronic cough, cough, dyspnea on exertion, excessive sputum production, hemoptysis, pleurisy, shortness of breath, wheezing, other Gastrointestinal: reports: see HPI, abdominal pain, nausea, vomiting. denies: diarrhea Genitourinary: reports: no symptoms reported. denies: see HPI, dysuria, discharge, frequency, flank pain, frequent UTI's, hematuria, hesitency, incontinence, urinary retention, urgency, other Musculoskeletal: reports: no symptoms reported. denies: see HPI, bone pain, back pain, frequent leg cramps, joint pain, joint swelling, muscle aches, muscle weakness, neck pain, other Integumentary: reports: no symptoms reported. denies: see HPI, hives, hair loss, itching, mole changes, nail changes, rash, skin sores/ulcer, skin thickening, other Neurological: reports: no symptoms reported. denies: see HPI, ataxia, dizziness/vertigo, headache/migraines, loss of balance, numbness, paresthesia, seizure, slurred speech, syncope, tremors, other Psychiatric: reports: no symptoms reported. denies: see HPI, anxiety, anti- depressant use, alcohol/drug dependence, depression, emotional problems, insomnia, panic attacks, suicidal thoughts, other Endocrine: reports: no symptoms reported. denies: see HPI, change in skin pigment, excessive sweating, goiter, cold intolerance, heat intolerance, increased hunger, increased thirst, polyuria, other Hematologic/Lymphatic: reports: no symptoms reported. denies: see HPI, blood clots, easy bruising, low blood count, lymphedema, prolonged bleeding, swollen lymph nodes, transfusions, other Allergic/Immunologic: reports: no symptoms reported. denies: see HPI, allergic reactions, allergic rhinitis, asthma, eczema, food allergy, frequent infections, hay fever, hives, positive PPD, urticaria, other Past History - Adult - PAST MEDICAL HISTORY-ADULT Review of Records: reports: Old Records Reviewed, Nursing Assessment Review, Social history reviewed & non-contributory. Physical Exam-General - PHYSICAL EXAM-ADULT Initial Vital Signs Reviewed: Yes - CONSTITUTIONAL General Appearance: appears well, alert, no apparent distress - EYES Eyes: PERRL/EOMI, pink conjunctivae - HEAD, EARS, NOSE, MOUTH & THROAT HENMT: normocephalic/atraumatic, normal ENT inspection. negative: moist mucous membranes (dry) - NECK Neck: non-tender, full range of motion, supple - RESPIRATORY Respiratory: chest non-tender, lungs clear, normal breath sounds, no pleuratic chest pain, no respiratory distress, no accessory muscle use - CARDIOVASCULAR Cardiovascular: normal peripheral pulses, no edema, no gallop, no JVD, no murmur , tachycardia - GASTROINTESTINAL (ABDOMEN) Abdominal Exam: normal bowel sounds, non tender, soft, no organomegaly, no pulsatile mass - LYMPHATIC Lymphatic: no adenopathy - MUSCULOSKELETAL Back Exam: normal inspection, no CVA tenderness, no vertebral tenderness Extremity: normal range of motion, non-tender, normal gait, normal inspection Peripheral Pulses: radial (R): 2+, radial (L): 2+ - SKIN Integumentary: normal color, normal turgor, warm/dry - NEUROLOGIC Neurologic: grossly normal - PSYCHIATRIC Psych/Mental Status: normal mood/affect, oriented x 3 Progress - PLAN OF CARE/RESULTS Progress/Plan/Lab Results: Vital Signs - 8 hr 01/30/20 18:43 Temperature 98.6 F Pulse Rate 129 H Respiratory Rate 18 Blood Pressure 155/95 O2 Sat by Pulse Oximetry 100 Orders Category Date Time Status Cardiac Monitoring DIRECTED Care 01/30/20 19:05 Active ED: Urine Bedside NOW Care 01/30/20 19:05 Active FSBS/Accucheck Result Q1H Care 01/30/20 19:05 Active NEWS Score 2-4:Order NEWS Lactate Series NOW Care 01/30/20 18:47 Active Saline Loc NOW Care 01/30/20 18:56 Active Saline Loc NOW Care 01/30/20 19:05 Active Vital Signs Order Q1H Care 01/30/20 19:05 Active ABG [RESP] Routine Lab 01/30/20 19:05 Ordered ACETONE SERUM [CHEM] Stat Lab 01/30/20 19:05 Uncollected CBC WITH ELECTRONIC DIFF [HEME] Stat Lab 01/30/20 18:56 Uncollected CBC WITH NO DIFF [HEME] Stat Lab 01/30/20 19:05 Uncollected CK PROFILE [SP CHEM] Stat Lab 01/30/20 19:05 Uncollected COMPREHENSIVE METABOLIC PANEL [CHEM] Stat Lab 01/30/20 18:56 Uncollected COMPREHENSIVE METABOLIC PANEL [CHEM] Stat Lab 01/30/20 19:05 Uncollected LACTATE, PLASMA [CHEM] Stat Lab 01/30/20 18:56 Uncollected LACTATE, PLASMA [CHEM] Stat Lab 01/30/20 19:05 Uncollected LIPASE [CHEM] Stat Lab 01/30/20 18:56 Uncollected MAGNESIUM [CHEM] Stat Lab 01/30/20 19:05 Uncollected PHOSPHORUS [CHEM] Stat Lab 01/30/20 19:05 Uncollected TROPONIN T HIGH SENSITIVITY Stat Lab 01/30/20 19:05 Uncollected UA NIMS W/REFLEX CULT [URINALYSIS] Stat Lab 01/30/20 18:56 Uncollected URINALYSIS [URINALYSIS] Stat Lab 01/30/20 19:05 Uncollected URINE DRUG SCREEN Stat Lab 01/30/20 19:05 Uncollected 0.9% Sodium Chloride Inj [Ns] 1,000 ml Med 01/30/20 19:15 Active IV 500 mls/hr 0.9% Sodium Chloride Inj [Ns] 1,000 ml Med 01/30/20 18:56 Active IV 999 mls/hr 0.9% Sodium Chloride Inj [Ns] 1,000 ml Med 01/30/20 19:05 Active IV 999 mls/hr Famotidine [Pepcid] Med 01/30/20 19:16 Once 20 mg IV NOW ONE Ondansetron [Zofran] Med 01/30/20 19:16 Once 4 mg IV NOW ONE Sodium Chloride 0.9% Med 01/30/20 19:16 Once 5 - 10 ml INJ NOW ONE Pt agrees to admission Result Diagrams: 01/30/20 20:12 01/30/20 20:12 - CT/MRI 1 CT Study: Abdomen, Pelvis Impression: See EMR Report (EXAM: CT ABD/PELVIS W/IV CONT ONLY HISTORY: abd pain TECHNIQUE: CT abdomen and pelvis with intravenous contrast, but without oral contrast. COMPARISON: None. FINDINGS: There is fatty infiltration of the liver. No calcified gallstones or adjacent inflammation. Normal spleen, pancreas, and adrenal glands. Questionable heterogeneous enhancement of the kidneys. No hydronephrosis. Normal aorta. No bowel obstruction. Normal appendix. No abscess. The urinary bladder is minimally distended. Normal prostate. No ascites. IMPRESSION: Questionable pyelonephritis. This exam was performed using automated exposure control, adjustment of mA or kV according to patient size, and/or use of iterative reconstruction technique. Electronically signed by Bro Zimmerman 01/30/2020 9:20 PM 01/30/202119 Interpreting Physician: Bro Zimmerman MD Dictated Date/Time: 01/30/202117 cc: Moon Merrill; None,PCP) - CONSULTS/PCP/HOSPITALIST Notification #1 *Consult/PCP/Hospitalist*: Dr. Jose Time Discussed: 22:32 Consult Disposition: Admit Departure - Departure Date of Disposition Decision: 01/30/20 Time of Disposition Decision: 22:19 DIAGNOSIS: Diabetes mellitus with hyperglycemia, Pyelonephritis, Nausea & vomiting Disposition: ADMITTED INPATIENT 09 Certified Medical Emergency: Emergent Condition: Stable Referrals and Follow-Ups: None,PCP [Primary Care Provider] - - Critical Care Note This patient required my direct & personal management of CC.: No Attestation - Physician/ KELSEY Attestation Patient care was provided by Advanced Practice Provider:: Yes Advanced Practice Provider:: Moon Merrill Advanced Practice Provider documentation review:: The Mid-level provider documentation, treatment plan and medical decision making was reviewed by the physician who agrees with all treatment and medical decision making by the MLP. The physician spent face to face time with patient:: Yes (Dr. Flanagan) Advanced Practice Provider documentation review:: Supervising physician onsite and consulted in the evaluation and care of this patient. The physician did have a face to face encounter with the patient.
[2020-01-30 19:47] LABS: ALLEN TEST YES; BE 6.3 mmoll (-3.0-3.0); BLOOD TYPE ARTERIAL; HCO3-(ACT) 29.7 mmoll (20.0-26.0); METHB 1.2 % (0.0-1.5); O2(CT) 21.9 mL/dL (15.0-23.0); O2HB 93.9 % (95.0-99.0); PCO2(98.6) 41 mmHg (35-45); PO2(98.6) 86 mmHg (60-100); SAMPLE BLOOD; SAO2 97.6 % (95.0-100.0); THB 16.6 g/dL (11.5-17.4); pH(98.6) 7.48 (7.35-7.45)
[2020-01-30 19:48] LABS: MODALITY ROOM AIR
[2020-01-30 20:02] LABS: AGAP 17; ALB/GLOB RATIO 1.4; ALBUMIN 5.3 g/dL (3.5-5.0); ALKALINE PHOSPHATASE 84 U/L (32-122); BUN 16 mg/dL (8-22); CALCIUM 10.5 mg/dL (8.8-10.2); CHLORIDE 93 mmol/L (98-107); COSMO 284; CREATININE 0.9 mg/dL (0.7-1.2); ESTIMATED GFR > 60; GLUCOSE 163 mg/dL (70-104); GOT 23 U/L (10-34); GPT 39 U/L (10-44); MAGNESIUM 2.2 mg/dL (1.5-2.7); POTASSIUM 3.9 mmol/L (3.5-5.1); SODIUM 140 mmol/L (136-145); TCO2 30 mmol/L (25-35); TOTAL BILIRUBIN 1.26 mg/dL (0.20-1.00)
[2020-01-30 20:08] LABS: CK PROFILE 446 U/L (24-204)
[2020-01-30 20:13] LABS: ACETONE SERUM NEGATIVE (NEGATIVE)
[2020-01-30 20:22] LABS: HEMATOCRIT 50.1 % (42.0-52.0); HEMOGLOBIN 16.4 g/dL (14.0-18.0); MCH 26.3 PG (27-31); MCHC 32.7 g/dL (33-37); MCV 80.3 FL (81-99); RBC 6.24 XMIL (4.7-6.1); RDW 13.3 % (11.5-14.5); WBC 8.76 X1000 (4.8-10.8)
[2020-01-30 20:22] LABS: CK INDEX 0.4 (0.0-2.5); CK-MB 1.87 ng/mL (0.0-5.0)
[2020-01-30] MEDS: NS 1,000 ML IV SCH ×2 (20:24→21:15)
[2020-01-30 20:27] LABS: URINE SOURCE CLEAN CATCH
[2020-01-30 20:48] LABS: UR AMPHETAMINES QUAL NONE DETECTED (NONE DETECT); UR BARBITUATES QUAL NONE DETECTED (NONE DETECT); UR BENZODIAZEPIN QUAL NONE DETECTED (NONE DETECT); UR CANNABINOIDS QUAL PRESUMPTIVE POSITIVE (NONE DETECT); UR COCAINE QUAL NONE DETECTED (NONE DETECT); UR METHADONE QUAL NONE DETECTED (NONE DETECT); UR OPIATES QUAL NONE DETECTED (NONE DETECT); UR OXYCODONE QUAL NONE DETECTED (NONE DETECT); UR PCP QUAL NONE DETECTED (NONE DETECT)
[2020-01-30 20:52] LABS: BILIRUBIN URINE NEGATIVE (NEGATIVE); BLOOD URINE TRACE (NEGATIVE); COLOR YELLOW; GLUCOSE URINE NEGATIVE (NEGATIVE); LEUKOCYTES URINE SMALL (NEGATIVE); NITRITE URINE NEGATIVE (NEGATIVE); TURBIDITY URINE CLEAR (CLEAR); UROBILINOGEN URINE 2 mg/dL (NORMAL)
[2020-01-30 20:56] LABS: AGAP 14; ALB/GLOB RATIO 1.2; ALBUMIN 4.9 g/dL (3.5-5.0); ALKALINE PHOSPHATASE 78 U/L (32-122); BUN 16 mg/dL (8-22); CALCIUM 9.8 mg/dL (8.8-10.2); CHLORIDE 95 mmol/L (98-107); COSMO 282; CREATININE 0.8 mg/dL (0.7-1.2); ESTIMATED GFR > 60; GLUCOSE 151 mg/dL (70-104); GOT 22 U/L (10-34); GPT 35 U/L (10-44); LIPASE 26 U/L (13-60); POTASSIUM 3.9 mmol/L (3.5-5.1); SODIUM 139 mmol/L (136-145); TCO2 30 mmol/L (25-35); TOTAL BILIRUBIN 1.15 mg/dL (0.20-1.00)
[2020-01-30 20:59] LABS: BASO# 0.01 X1000 (0.0-0.2); BASO% 0.1 % (0.0-0.8); HEMATOCRIT 49.5 % (42.0-52.0); HEMOGLOBIN 16.3 g/dL (14.0-18.0); IMM GRAN# 0.02 X1000 (0.0-0.04); IMM GRAN% 0.2 % (0.0-0.5); LYMPH# 1.03 X1000 (1.2-3.4); LYMPH% 11.8 % (20.5-51.1); MCH 26.5 PG (27-31); MCHC 32.9 g/dL (33-37); MCV 80.4 FL (81-99); MONO# 0.51 X1000 (0.11-0.59); MONO% 5.9 % (1.7-9.3); MPV 9.9 FL (7.4-10.4); NEUT# 7.13 X1000 (1.4-6.5); PLT 426 X1000 (130-400); RBC 6.16 XMIL (4.7-6.1); RDW 13.3 % (11.5-14.5)
[2020-01-30 21:04] LABS: KETONE URINE 20 mg/dL (NEGATIVE); PROTEIN URINE 600 mg/dL (NEGATIVE); SP GRAVITY URINE 1.029; UR EPITHELIAL CELLS <10 /HPF (<10); URINE BACTERIA NEGATIVE /HPF; URINE WBC 20-40 /HPF (<10)
--- NOTE | 2020-01-30 21:23 | Diag Imaging Result Doc PS360 ---
EXAM: CT ABD/PELVIS W/IV CONT ONLY HISTORY: abd pain TECHNIQUE: CT abdomen and pelvis with intravenous contrast, but without oral contrast. COMPARISON: None. FINDINGS: There is fatty infiltration of the liver. No calcified gallstones or adjacent inflammation. Normal spleen, pancreas, and adrenal glands. Questionable heterogeneous enhancement of the kidneys. No hydronephrosis. Normal aorta. No bowel obstruction. Normal appendix. No abscess. The urinary bladder is minimally distended. Normal prostate. No ascites. IMPRESSION: Questionable pyelonephritis. This exam was performed using automated exposure control, adjustment of mA or kV according to patient size, and/or use of iterative reconstruction technique. Electronically signed by Bro Zimmerman 01/30/2020 9:20 PM
[2020-01-30] MEDS ORDERED: REGLAN IV ONE (22:08)
[2020-01-30] MEDS ORDERED: LEVAQUIN 750 MG/D5W 750 MG/150 ML IVPB IV ONE (22:08)
[2020-01-30] MEDS ORDERED: CATAPRES PO ONE (23:17)
--- NOTE | 2020-01-31 00:36 | HISTORY AND PHYSICAL ---
PRIMARY CARE PHYSICIAN: None. REASON FOR ADMISSION: Intractable nausea and vomiting. HISTORY OF PRESENT ILLNESS: Mr. Blaine Kyle is a 24-year-old young black man with a past medical history of type 2 diabetes and was seen here last for Danny gangrene. He comes in today because of intractable nausea and vomiting 2 ago. He says he has vomited at least 10 times and even showed me a picture of his emesis which contained coffee-grounds. He denies any melanotic stools or hematochezia. He also denies any fever or chills. He says in the last 24 hours had 1 episode of dysuria but no penile discharge or hematuria or bleeding from any other orifice. The patient denies any GI, cardiorespiratory, or any additional genitourinary complaints. No focal neurological complaints. No headaches visual symptoms. No polyuria or polydipsia. REVIEW OF SYSTEMS: Twelve system review was done, positive findings per HPI. ALLERGIES: Nothing. MEDICATIONS: He states that he takes metformin but cannot remember the dose. He has taken blood pressure medication in the past, but is no longer taking that. FAMILY HISTORY: Notable for history of sickle cell disease, multiple sclerosis and diabetes in first-degree relatives. Mom had rectal cancer. SURGICAL HISTORY: He has had debridement for Danny gangrene and surgery to remove a blood clot in his right leg. SOCIAL HISTORY: He does smoke tobacco products. No alcohol. Smokes marijuana products almost on a daily basis. LAB WORK: A blood gas was done, pH was 7.48, pCO2 is 41, PO2 is 86, positive 2.6 carboxyhemoglobin, O2 saturation was 94%. Chemistry: BUN is 16, creatinine 0.8. Glucose 151. CK 446. Albumin is 5.3 with a total protein of 9, lipase normal. Lactate normal. Calcium is normal. Urinalysis shows 10 to 40 white cells, 10 to 20 RBCs, no bacteria noted. UDS is positive for cannabinoids. CT of the abdomen is suggestive of possible pyelonephritis, fatty infiltration of the liver was also noted. PHYSICAL EXAMINATION: VITAL SIGNS: Blood pressure 177/133, heart rate 100, respiratory rate 18, temperature is 98.3 degrees. He is 98% on room air. GENERAL: Slightly overweight, young black male who is not in acute distress. AAO x3. Normal mood and affect. HEENT: Head is normocephalic, atraumatic. Eyes: LUBNA, EOMI. He is anicteric, not pale. ENT: Oropharyngeal exam is grossly normal. NECK: Supple. No JVD or carotid bruit. No thyromegaly. CHEST: Clear to auscultation both lung hyman. CARDIOVASCULAR: First and sounds heart sounds heard. No gallops, murmurs, rubs. Rhythm is regular. ABDOMEN: Soft, nontender. No organomegaly. Bowel sounds are normal. RECTAL: Deferred at this time. No CVA tenderness. EXTREMITIES: Good distal pulse volumes, regular, symmetrical. No edema, clubbing or peripheral cyanosis. NEUROLOGICAL: Grossly normal, no focal deficits. SKIN: Intact. No breakdown, lesion, erythema. MUSCULOSKELETAL: Grossly normal. ASSESSMENT: 1. Urinary tract infection. 2. Type 2 diabetes. 3. Uncontrolled hypertension. 4. Intractable nausea and vomiting, rule out THC-induced emesis. PLAN: Await urine cultures. Fluid resuscitation for the GI losses. IV PPIs will be instituted with p.r.n. antiemetics. IV antibiotics with Rocephin will be initiated. The patient will benefit from diabetic education because I do believe this patient is not compliant with his diabetic medication and, most importantly, the patient needs to be reinstated back on blood pressure medication, preferably REBECA inhibitors, especially due to the fact the patient has protein in his urine. The patient's emesis that he may be experiencing could be due from his daily use of marijuana. He will need to be counseled on this. cc: Neha Jose MD
[2020-01-31] MEDS ORDERED: LOVENOX SUBQ SCH (01:01)
[2020-01-31] MEDS ORDERED: ROCEPHIN 1 GM in NS 50 ML IV SCH (01:01)
[2020-01-31] MEDS ORDERED: PRINZIDE 20/12.5MG PO ONE (01:01)
[2020-01-31] MEDS ORDERED: ZOFRAN IV PRN (01:01)
[2020-01-31] MEDS ORDERED: TYLENOL PO PRN (01:01)
[2020-01-31] MEDS ORDERED: PROTONIX IV ONE (01:01)
[2020-01-31] MEDS ORDERED: SODIUM CHLORIDE 0.9% INJ SCH (01:01)
[2020-01-31 01:05] LABS: HEMOGLOBIN A1C 7.3 % (4.8-6.0)
[2020-01-31] MEDS: NS 1,000 ML IV SCH ×2 (01:20→09:11)
[2020-01-31] MEDS ORDERED: PHENERGAN PR PRN (03:08)
[2020-01-31] MEDS ORDERED: HUMALOG SUBQ SCH ×2 (07:00→10:57)
[2020-01-31] MEDS ORDERED: PRILOSEC PO SCH (07:00)
--- NOTE | 2020-01-31 08:21 | EKG Report ---
Test Performed on : 01/31/2020 07:36:45 AM Test Reason : HTN Blood Pressure : / mmHG Vent. Rate : 092 BPM Atrial Rate : 092 BPM P-R Int : 114 ms QRS Dur : 086 ms QT Int : 352 ms P-R-T Axes : 037 064 -23 degrees QTc Int : 435 ms Normal sinus rhythm. Nonspecific T wave abnormality Abnormal ECG No previous ECGs available Confirmed by Kristal STONE, Jimenez Moreno ([id number]) on 01/31/2020 9:00:01 AM
[2020-01-31 08:48] LABS: AGAP 12; BUN 10 mg/dL (8-22); CALCIUM 9.6 mg/dL (8.8-10.2); CHLORIDE 95 mmol/L (98-107); COSMO 271; CREATININE 0.8 mg/dL (0.7-1.2); ESTIMATED GFR > 60; GLUCOSE 130 mg/dL (70-104); POTASSIUM 3.8 mmol/L (3.5-5.1); SODIUM 135 mmol/L (136-145); TCO2 28 mmol/L (25-35)
[2020-01-31] MEDS ORDERED: PRINZIDE 20/12.5MG PO SCH ×2 (09:00→21:00)
[2020-01-31] MEDS ORDERED: LANTUS INSULIN SUBQ SCH (09:00)
[2020-01-31 12:56] VITALS: BP 171/116
--- NOTE | 2020-01-31 15:00 | DISCHARGE SUMMARY ---
ADMISSION DATE: 01/31/2020 DISCHARGE DATE: 01/31/2020 PRIMARY CARE PROVIDER: None. PERTINENT PROCEDURES: Abdomen and pelvis CT, questionable pyelonephritis. DISCHARGE DIAGNOSES: 1. Urinary tract infection. The patient will continue on p.o. antibiotics. 2. Type 2 diabetes. 3. Uncontrolled hypertension. Will be discharged on lisinopril hydrochlorothiazide. 4. Intractable nausea and vomiting, possibly secondary to THC and emesis. HOSPITAL COURSE: Briefly, Mr. Kyle is a 24-year-old gentleman with a past medical history of type 2 diabetes, came to the ED for intractable nausea and vomiting 2 days ago, stating he vomited at least 10 times. He reported one episode of dysuria, but no pain on discharge, hematuria, bleeding from any orifice or any other complaint. He was admitted for probable urinary tract infection, given one dose of IV antibiotics and awaiting his urine culture that showed no growth so he will not be discharged on antibiotic. Uncontrolled hypertension for which he has been given lisinopril hydrochlorothiazide. Will be discharged back home today. Follow up with the primary care provider of his choosing. VITAL SIGNS: At time of discharge, temperature is 98.2 degrees, heart rate 93, respirations 20, blood pressure 171/116, O2 100% on room air. DISCHARGE DIET: Diabetic. DISCHARGE MEDICATIONS: 1. Metformin 850 mg p.o. b.i.d. 2. Lisinopril hydrochlorothiazide 1 tab p.o. daily. FOLLOWUP: Mr. Kyle is being discharged back home with self care. He is to follow up with a primary care provider. The list has been provided to him. He can return to the ED or call 911 for any worsening of symptoms. Dictated by MARCEL Adams for Paul Padilla MD cc: Paul Padilla MD
== END 2020-01-31 14:22 | disposition home or self-care (01) | DRG 690 ==
LOC: ED 18:38 → SUATTDRO 01-31 00:59 → 3N 01-31 00:59
PROVIDERS: ATTEND Internal Medicine